=== PATIENT | female | born 1970 | race Caucasian/White ===

== ENCOUNTER 2024-09-10 08:20 | Day surgery (SDC) | payer BC ==
[2024-09-10] VITALS (17 sets, daily range): BP systolic 102–180; BP diastolic 54–150
[~2024-09-10] VITALS: Ht 162.6 cm; Wt 64.8 kg
[~2024-09-10 08:20] MED LIST: Lactated Ringer's 1,000 ML IV SCH; MULVITA PO
--- NOTE | 2024-09-10 09:03 | NUR ---
Pre-Op teaching done. Pt verbalizes understanding. Patient confirms NPO status and agrees with scheduled surgery. Patient States Post-Procedure ride home has been arranged.
[2024-09-10] MEDS ORDERED: propofoL 40 ML IV ONE (09:07)
--- NOTE | 2024-09-10 09:10 | NUR ---
09/10/24 09Pretty Hanna CONFIRMED AND REVIEWED H&P, MEDCICATIONS, ALLERGIES, MEDICAL HISTORY, RESPIRATORY HISTORY, VITAL SIGNS, 3-LEAD EKG, CONSENTS, AND PHYSICIAN ORDERS. PATIENT CONFIRMS NPO STATUS AND AGREES WITH SCHEDULED PROCEDURE. MONITOR INTACT WITH CONTINUOUS PULSE OXIMETRY, CAPNOGRAPHY, 3-LEAD EKG, INTERMITTENT BP. SUPPLEMENTAL O2 TO BE TITRATED THROUGHOUT PROCEDURE TO MAINTAIN O2 SATURATION ABOVE 90%. PATIENT DETERMINED TO BE ASA APPROPRIATE FOR PROPOFOL SEDATION PRIOR TO START OF PROCEDURE BY DR. GARDNER.
[2024-09-10] MEDS ORDERED: Midazolam HCl 1MG / ML 2ML Vial ONE (09:19)
--- NOTE | 2024-09-10 09:44 | NUR ---
Discharge instructions reviewed with patient. Patient verbalizes understanding. Copy given to patient to take home.
--- NOTE | 2024-09-10 10:01 | NUR ---
Discharged via wheelchair to private car for ride home.
== END 2024-09-10 10:01 | disposition home or self-care (01) ==
LOC: ORSCMMR 08:20 → ORD 09:00 → ORSCMMR 09:00
PROVIDERS: Internal Medicine Gastroenterology
PROC: 0DBL8ZX Excision of Transverse Colon, Via Natural or Artificial Opening Endoscopic, Diagnostic (ICD-10-PCS; principal; 2024-09-10 09:00)
PROC: 0DBC8ZX Excision of Ileocecal Valve, Via Natural or Artificial Opening Endoscopic, Diagnostic (ICD-10-PCS; principal; 2024-09-10 09:00)
PROC: 0DBK8ZX Excision of Ascending Colon, Via Natural or Artificial Opening Endoscopic, Diagnostic (ICD-10-PCS; principal; 2024-09-10 09:00)
DX: Z12.11 Encounter for screening for malignant neoplasm of colon (principal); D12.2 Benign neoplasm of ascending colon; K63.5 Polyp of colon; Z80.0 Family history of malignant neoplasm of digestive organs
CPT/HCPCS: 88305; J2250; J2704; J7120